=== PATIENT | female | born 1960 | race American Indian/Alaskan Native ===

== ENCOUNTER 2017-08-14 13:21 | Outpatient (CLI) | payer OTHER ==
--- NOTE | 2017-08-14 14:54 | Mammography Report ---
BILATERAL MAMMOGRAM: FINDINGS: There are scattered fibroglandular densities (approximately 25%-50% glandular). No mass, distortion, suspicious calcification, or skin change is seen. There is no significant change when compared to prior exam in April 2014. CAD was utilized. IMPRESSION: Negative mammogram. There is no mammographic evidence of malignancy. RECOMMENDATION: Follow-up per ACS guidelines. BI-RADS CATEGORY: 1 = Negative ACR BI-RADS MAMMOGRAPHIC CODES: 0 = Needs additional imaging evaluation; 1 = Negative; 2 = Benign; 3 = Probably benign; 4 = Suspicious; 5 = Malignant; 6 = Known biopsy-proven malignancy COMMENT: 1. Dense breast tissue, i.e., adenosis, fibrocystic changes, etc., may obscure an underlying neoplasm. 2. Approximately 10% of cancers are not detected with mammography. 3. A negative mammography report should not delay biopsy if a clinically suspicious mass is present. COMMENT: Patient follow-up letters are generated in [email or web address].
== END 2017-08-14 13:22 | disposition home or self-care (01) ==
LOC: MAMMO 13:21
PROVIDERS: ATTEND Nurse Practitioner Gerontology
DX: Z12.31 Encounter for screening mammogram for malignant neoplasm of breast (principal)
CPT/HCPCS: 77067

== ENCOUNTER 2019-07-24 09:39 | Outpatient (CLI) | payer OTHER ==
--- NOTE | 2019-07-24 14:58 | Mammography Report ---
DIGITAL SCREENING MAMMOGRAM WITH CAD, 07/24/2019 INDICATION: Routine screening mammography. TECHNIQUE: Digital bilateral 2D mammography was obtained in the craniocaudal and mediolateral obliq ue projections. This examination was interpreted with the benefit of Computer-Aided Detection analysi s. COMPARISON: 08/14/2017, 04/17/2014 and 04/04/2013 FINDINGS: Breast Density: There are scattered areas of fibroglandular density. There is no evidence of dominant mass, suspicious calcifications or architectural distortion in eithe r breast. IMPRESSION: No mammographic evidence of malignancy. Follow up recommendation: Routine yearly BI-RADS Category 1: Negative. A "normal" or negative report should not discourage follow up or biopsy of a clinically significant f inding. A written summary of these findings will be mailed to the patient. The patient will be entered into a mammography reporting system which will generate a reminder letter for the patient's next appointmen t at the appropriate interval. The [employer] recommends yearly mammograms starting at age 40 and continuing as l andrea as a woman is in good health. Breast MRI is recommended for women with an approximate 20-25% or greater lifetime risk of breast cancer, including women with a strong family history of breast or ova kim cancer or who have been treated for Hodgkin's disease. Signer Name: Collin Renteria MD Signed: 07/24/2019 2:53 PM Workstation Name: [id number]
== END 2019-07-24 09:40 | disposition home or self-care (01) ==
LOC: MAMMO 09:39
PROVIDERS: ATTEND Internal Medicine
DX: Z12.31 Encounter for screening mammogram for malignant neoplasm of breast (principal); N64.89 Other specified disorders of breast
CPT/HCPCS: 77067

== ENCOUNTER 2020-03-27 10:09 | Day surgery (SDC) | payer OTHER ==
[~2020-03-27 10:09] MED LIST: LACTATED RINGERS 1,000 ML IV SCH; MIDAZOLAM 2 MG/2 ML INJ IV NR
[2020-03-27] MEDS ORDERED: ONDANSETRON 4 MG/2 ML INJ IV PRN (10:54)
[2020-03-27] MEDS ORDERED: HYDROcodone/ACETAMINOPHEN 5-325 MG TAB PO PRN (10:54)
[2020-03-27] MEDS ORDERED: fentaNYL 100 MCG/2 ML INJ IV PRN (10:54)
--- NOTE | 2020-03-27 10:54 | Anesthesia Day of Surgery ---
Anesthesia Day of Surgery - Day of Surgery Patient Examined: Yes Patient H&P Reviewed: Yes Patient is NPO: Yes (chewing tobacco out at 1200)
--- NOTE | 2020-03-27 10:54 | Anesthesia Consultation ---
Anesthesia Consult and Med Hx Date of service: 03/27/20 - Airway Anesthetic Teeth Evaluation: Good (missing teeth but none loose) ROM Head & Neck: Adequate Mental/Hyoid Distance: Adequate Mallampati Class: Class III Intubation Access Assessment: Possibly Difficult - Pulmonary Exam CTA: Yes - Cardiac Exam Cardiac Exam: RRR - Pre-Operative Health Status ASA Pre-Surgery Classification: ASA2 Proposed Anesthetic Plan: MAC - Pulmonary Hx Smoking: No (uses chewing tobacco) Hx Respiratory Symptoms: No Hx Sleep Apnea: No (DAWOOD PRE SCREEN LOW RISK) - Cardiovascular System Hx Hypertension: No Hx Heart Attack/AMI: No - Central Nervous System CVA: No - Gastrointestinal Hx Gastroesophageal Reflux Disease: No - Endocrine Hx Renal Disease: No Hx Liver Disease: No Hx Non-Insulin Dependent Diabetes: Yes (pre-DM) Hx Thyroid Disease: No - Other Systems Hx Obesity: No - Additional Comments Anesthesia Medical History Comments: No hx anesthetic complications. Last removed chewing tobacco today 1000. Did not swallow. Patient is otherwise low risk for aspiration so will prceed at schedule 1200 start time.
[2020-03-27] MEDS ORDERED: METOCLOPRAMIDE 10 MG/2 ML INJ IV NR (11:00)
[2020-03-27] MEDS ORDERED: ceFAZolin/STERILE WATER 2 GM/20 ML SYRINGE IV NR (11:00)
[2020-03-27] MEDS ORDERED: HYDROmorphone 1 MG/1 ML INJ ONE (11:42)
[2020-03-27] MEDS ORDERED: propofoL 200 MG/20 ML VIAL IV ONE (11:42)
[2020-03-27] MEDS ORDERED: BUPIVACAINE/PF (0.25%) 2.5 MG/ML 30 ML VIAL INFILTRATI ONE ×3 (11:48→12:54)
[2020-03-27] MEDS ORDERED: LIDOCAINE (1%) 10 MG/1 ML VIAL 20 ML MDV ONE (11:49)
[2020-03-27] MEDS ORDERED: MIDAZOLAM 2 MG/2 ML INJ ONE (11:50)
[2020-03-27] MEDS ORDERED: LIDOCAINE MPF (2%) 20 MG/1 ML VIAL 5 ML ONE (11:52)
[2020-03-27] MEDS ORDERED: FAMOTIDINE 20 MG/2 ML INJ IV ONE (12:00)
[2020-03-27] MEDS ORDERED: ONDANSETRON 4 MG/2 ML INJ ONE (12:47)
[2020-03-27] MEDS ORDERED: LIDOCAINE (1%) 10 MG/1 ML VIAL 20 ML MDV INFILTRATI ONE ×2 (12:54)
--- NOTE | 2020-03-27 12:54 | Short Stay Summary ---
Short Stay Documentation Date of service: 03/27/20 - History Principal diagnosis: soft tissue mass right forearm H&P: obtained from office - Allergies and Medications Current Medications: Allergies No Known Allergies Allergy (Verified 03/25/20 17:02) Home Medications Medication Instructions Recorded Confirmed Last Taken Type Pravastatin [Pravachol] 40 mg PO QHS 03/25/20 03/27/20 03/26/20 08:00 History metFORMIN [Glucophage] 500 mg PO BID 03/25/20 03/27/20 03/26/20 18:00 History Active Medications Hydrocodone Bitart/Acetaminophen (Hydrocodone/Acetaminophen 5-325 Mg Tab) 2 each PO ONCE PRN PRN Reason: Pain, Moderate (4-6) Cefazolin Sodium (Cefazolin/Sterile Water 2 Gm/20 Ml Syringe) 2 gm IV PREOP NR Stop: 03/27/20 23:00 Fentanyl (Fentanyl 100 Mcg/2 Ml Inj) 50 mcg IV Q5MIN PRN PRN Reason: Pain , Severe (7-10) Lactated Ringer's (Lactated Ringers) 1,000 mls @ 100 mls/hr IV DIRECT ABBEY Stop: 03/27/20 23:59 Last Admin: 03/27/20 11:10 Dose: 100 mls/hr Documented by: Metoclopramide HCl (Metoclopramide 10 Mg/2 Ml Inj) 10 mg IV PREOP NR Stop: 03/27/20 23:59 Last Admin: 03/27/20 11:20 Dose: 10 mg Documented by: Midazolam HCl (Midazolam 2 Mg/2 Ml Inj) 2 mg IV PREOP NR Stop: 03/27/20 23:00 Last Admin: 03/27/20 12:13 Dose: 2 mg Documented by: Ondansetron HCl (Ondansetron 4 Mg/2 Ml Inj) 4 mg IV ONCE PRN PRN Reason: Nausea And Vomiting - Brief post op/procedure progress note Date of procedure: 03/27/20 Pre-op diagnosis: soft tissue mass right forearm Post-op diagnosis: same Procedure: excision soft tissue mass right forearm Anesthesia: MAC, local Findings: 3cm lobulated fatty mass of right forearm Surgeon: CAPRI JONES Estimated blood loss: minimal Pathology: list (soft tissue mass right forearm) Specimen disposition: to lab Condition: stable - Hospital course Hospital course: Pt observed in PACU and discharged to home in stable condition when criteria met - Disposition Condition at discharge: Good Disposition: DC-01 TO HOME OR SELFCARE Short Stay Discharge Plan Activity: no restrictions Diet: regular Wound: open to air, other (may shower tomorrw, pat incision dry, do not scrub. Do not submerge incision in bath/hottub/pool until seen by surgeon) Follow up with: RUTH ANN PATRICIA MD [Primary Care Provider] - 7 Days CAPRI JONES DO [Staff Physician] - 14 Days Prescriptions: Ibuprofen [Motrin 800 MG tab] 800 mg PO Q8HR PRN #30 tablet PRN Reason: Pain , Severe (7-10)
--- NOTE | 2020-03-27 14:52 | Post Anesthesia Evaluation ---
- Post Anesthesia Evaluation Patient Participated: Yes Airway Patent: Yes Stable Respiratory Function: Yes Nausea/Vomiting: No Temp > 96.8F: Yes Pain Manageable: Yes Adequeate Hydration: Yes Anesthesia Complications: No
--- NOTE | 2020-03-27 14:57 | Operative Report ---
Operative Report Operative Report: Date of procedure: 03/27/20 Pre-op diagnosis: soft tissue mass right forearm Post-op diagnosis: same Procedure: excision soft tissue mass right forearm Anesthesia: MAC, local Findings: 3cm lobulated fatty mass of right forearm Surgeon: CAPRI JONES Estimated blood loss: minimal Pathology: list (soft tissue mass right forearm) Specimen disposition: to lab Condition: stable Hospital course: Pt observed in PACU and discharged to home in stable condition when criteria met HPI and indication: 10-qmoe-ckl-year-old with a soft tissue mass of the right forearm. She presented to the office for evaluation of the mass excised. All risk, benefits, alternatives to surgery were discussed in questions answered. Consent was obtained. Procedure in detail: Patient was identified in the preoperative area and the area of the mass was marked. She was taken back to the operating room and placed on the operating room table in supine position. The right forearm was prepped and draped in the usual sterile fashion and timeout performed. Local anesthetic was infiltrated into the skin at the intended incision site. A longitudinal incision was made over the area of the mass using a 15 blade and dissection carried down through skin subcutaneous tissue using Bovie electrocautery until the mass was encountered. The mass was from the surrounding tissue using a combination of blunt dissection and electrocautery. There was a superficial cutaneous nerve coursing over the mass which was easily and preserved. The mass was then dissected off the underlying tissue using electrocautery and excised from the wound. It measured approximately 3 cm was lobulated and fatty consistent with a lipoma. Wound was then irrigated and hemostasis carefully ensured. The deep dermal layer was closed with interrupted 3-0 Vicryl sutures. The skin was approximated using 4-0 Monocryl subcuticular running stitch and skin glue. At the end of the case, all sponge, instrument, sharp counts were correct x2. The patient was awoken from anesthesia and taken to PACU in stable condition.
[2020-03-27 17:05] VITALS: BP 117/37
== END 2020-03-27 10:10 | disposition home or self-care (01) ==
LOC: OR 10:09
PROVIDERS: ATTEND Surgery
DX: M79.89 Other specified soft tissue disorders (principal); R22.31 Localized swelling, mass and lump, right upper limb; D17.21 Benign lipomatous neoplasm of skin and subcutaneous tissue of right arm; E11.9 Type 2 diabetes mellitus without complications; E78.00 Pure hypercholesterolemia, unspecified; F17.210 Nicotine dependence, cigarettes, uncomplicated; Z86.19 Personal history of other infectious and parasitic diseases; Z79.899 Other long term (current) drug therapy; Z79.84 Long term (current) use of oral hypoglycemic drugs; Z90.710 Acquired absence of both cervix and uterus; Z98.890 Other specified postprocedural states
CPT/HCPCS: 25071; 82962; 88304; J0690; J1170; J2250; J2405; J2704; J2765; J7120; U0003; 88307

== ENCOUNTER 2020-08-31 09:53 | Outpatient (CLI) | payer OTHER ==
--- NOTE | 2020-09-01 10:37 | Mammography Report ---
DIGITAL SCREENING MAMMOGRAM WITH CAD, 08/31/2020 CLINICAL INFORMATION / INDICATION: Routine screening mammography. TECHNIQUE: Digital bilateral 2D mammography was obtained in the craniocaudal and mediolateral obliqu e projections. This examination was interpreted with the benefit of Computer-Aided Detection analysis . COMPARISON: 07/24/2019, 08/14/2017 FINDINGS: Breast Density: There are scattered areas of fibroglandular density. No dominant mass, suspicious calcifications, or architectural distortion in either breast. IMPRESSION: No mammographic evidence of malignancy. Follow up recommendation: Routine yearly BI-RADS Category 1: Negative. A "normal" or negative report should not discourage follow up or biopsy of a clinically significant f inding. A written summary of these findings will be mailed to the patient. The patient will be entered into a mammography reporting system which will generate a reminder letter for the patient's next appointmen t at the appropriate interval. The [employer] recommends yearly mammograms starting at age 40 and continuing as l andrea as a woman is in good health. Breast MRI is recommended for women with an approximate 20-25% or greater lifetime risk of breast cancer, including women with a strong family history of breast or ova kim cancer or who have been treated for Hodgkin's disease. Signer Name: Reno Reyes MD Signed: 09/01/2020 10:32 AM Workstation Name: [id number]
== END 2020-08-31 09:54 | disposition home or self-care (01) ==
LOC: MAMMO 09:53
PROVIDERS: ATTEND Physician Assistant
DX: Z12.31 Encounter for screening mammogram for malignant neoplasm of breast (principal)
CPT/HCPCS: 77067